=== PATIENT | female | born 1965 | race Caucasian/White ===

== ENCOUNTER 2017-07-24 15:48 | Emergency (ER) | payer BC ==
[~2017-07-24] VITALS: Ht 170.2 cm; Wt 59.1 kg
[2017-07-24 16:03] VITALS: TEMP 37; Ht 170.2 cm; Wt 59.1 kg
[2017-07-24 18:25] LABS: ISTAT CREATININE 0.9 mg/dl (0.6-1.3); ISTAT IONIZED CALCIUM 1.16 mmol/l (1.12-1.32); ISTAT POTASSIUM 3.9 mEq/L (3.3-5.0)
[2017-07-24] MEDS ORDERED: VENL75CA73 PO (18:54)
[2017-07-24] MEDS ORDERED: [UNRECOGNIZED DRUG - OTHER] PO (18:54)
[2017-07-24] MEDS ORDERED: LISI-729 PO (18:54)
[2017-07-24] MEDS ORDERED: POTA20TA16 PO (18:54)
[2017-07-24] MEDS ORDERED: MULT-513 PO (18:54)
[2017-07-24] MEDS ORDERED: MAGNESIUM PO (18:54)
[2017-07-24] MEDS ORDERED: THY/120 PO (18:54)
[2017-07-24] MEDS ORDERED: HYDR25TA4 PO (18:54)
[2017-07-24] MEDS ORDERED: PHEN1PAK PO (18:54)
[2017-07-24] MEDS ORDERED: ACET-1256 PO (18:55)
[2017-07-24 19:30] LABS: INFLUENZA B ANTIGEN Neg for Influ B (NEG)
[2017-07-24] MEDS ORDERED: NITR-5 PO (19:41)
--- NOTE | 2017-07-24 19:46 | EMERGENCY ROOM VISIT NOTE ---
History Report prepared by Claudia: Alda Osborn Under the Supervision of: Dr. Nicho Reynaga M.D. First contact with patient: 17:02 Chief Complaint: FLU LIKE SX Stated Complaint: SX OF KIDNEY INFECTION, PHYSICIAN REFERRED History of Present Illness The patient is a 52 year old female who presents to the Emergency Room with complaints of persistent flu symptoms starting 2 days ago. She reports aching joints. 2 nights ago she was walking to the living room when she became lightheaded and felt like she was going to pass out. She was able to lower herself down and did not hit her head or lose consciousness. She also started having left flank pain and strong smelling urine which she notes are symptoms of kidney infections for her. She denies any chest pain, SOB, abdominal pain or hematuria. She has a history of kidney infections. She denies any recent travel , recent surgery, hemoptysis, or hormone use. She denies any history of PE or DVT. Source of History: patient Onset: 2 days ago Position: other (global) Quality: other (flu symptoms) Timing: other (persistent) Associated Symptoms: + urinary symptoms, No LOC, No chest pain, No SOB, No abdominal pain Note: Pt reports aching joints, lightheadedness. Review of Systems See HPI for pertinent positives and negatives. A total of ten systems were reviewed and were otherwise negative. Past Medical & Surgical Medical Problems: (1) Aortic root aneurysm (2) Hypertension (3) Thyroid disease Family History No pertinent family history stated. Social History Smoking Status: Never Smoker Marital Status: Occupation Status: employed Current/Historical Medications Scheduled Hydrochlorothiazide (Hctz), 25 MG PO DAILY Lisinopril (Prinivil), 5 MG PO DAILY Multivitamins/Minerals (Mvi With Minerals), 1 TAB PO DAILY Nitrofurantoin Monohyd Macrocr (Macrobid), 100 MG PO BID Phenylephrine-Chlorpheniramine (Tylenol Cold Plus Flu Sev), 2 TABS PO PRN UD Potassium Ext Rel (Klor-Con), 20 MEQ PO BID Thyroid ([place] Thyroid), 120 MG PO DAILY Venlafaxine Hcl (Venlafaxine Extended Rel), 75 MG PO DAILY [Magnesium & B6], 1 TAB PO DAILY Scheduled PRN Acetaminophen (Tylenol), 1,000 MG PO Q6 PRN for Pain or Fever Allergies Coded Allergies: No Known Allergies (Unverified , 07/24/17) Physical Exam Vital Signs Date Time Temp Pulse Resp B/P (MAP) Pulse Ox O2 Delivery O2 Flow Rate FiO2 07/24/17 20:55 98 122/79 99 07/24/17 19:08 101 17 128/85 Room Air 07/24/17 16:03 37.0 99 18 112/76 96 Room Air Physical Exam Physical Exam GENERAL: She is oriented to person, place, and time. She appears well- developed and well-nourished. She does not appear distressed. ____ HENT: Exam performed. Head: Normocephalic and atraumatic. Right Ear: External ear normal. No mastoid tenderness. Left Ear: External ear normal. No mastoid tenderness. Mouth/Throat: The oropharynx is clear and moist. No trismus in the jaw. No dental abscesses or uvula swelling. No oropharyngeal exudate or tonsillar abscesses. ____ EYES: Conjunctivae and EOM are normal. Pupils are equal, round, and reactive to light. Right eye exhibits no discharge. Left eye exhibits no discharge. No scleral icterus. ____ NECK: Normal range of motion. Neck supple. No JVD present. No spinous process tenderness present. No carotid bruit present. No rigidity. No tracheal deviation and normal range of motion present. No Brudzinski's sign and no Kernig 's sign noted. ____ CV: Normal rate, regular rhythm, normal heart sounds and intact distal pulses. There is no peripheral edema. Palpable radial pulses bue. ____ PULM/CHEST: Effort normal and breath sounds normal. No respiratory distress. No stridor. She has no wheezes. She has no rales. Chest Wall: She exhibits no tenderness. ____ ABD: The abdomen is soft. Bowel sounds are normal. She has no distension. No mass is present. There is no tenderness. There is no rebound, no guarding, no Jenkins's sign and no tenderness at McBurney's point. Rovsig negative MUSC/SKEL: Normal range of motion. There is no peripheral edema, tenderness or deformity. LYMPH: No cervical adenopathy. ____ NEURO: She is alert and oriented to person, place, and time. She has normal strength. No cranial nerve deficit or sensory deficit. Coordination and gait normal. GCS eye subscore is 4. GCS verbal subscore is 5. GCS motor subscore is 6. cerbellar tests wnl. ____ SKIN: Skin is warm and dry. She is not diaphoretic. ____ PSYCH: She has a normal mood and affect. Her behavior is normal. Judgment and thought content normal. ____ Medical Decision & Procedures Laboratory Results Test 07/24/17 18:11 07/24/17 18:15 07/24/17 18:30 Bedside Hemoglobin 15.6 g/dl (12.0-16.0) Bedside Hematocrit 46 % (37-47) Bedside Sodium 138 mEq/L (135-144) Bedside Potassium 3.9 mEq/L (3.3-5.0) Bedside Chloride 99 mEq/L (101-112) Bedside Total CO2 31 mEq/l (24-31) Anion Gap 12.0 mmol/L (16-25) Bedside Blood Urea Nitrogen 17 mg/dl (7-18) Bedside Creatinine 0.9 mg/dl (0.6-1.3) Bedside Glucose (other) 101 mg/dl (70-99) Bedside Ionized Calcium (Ankit) 1.16 mmol/l (1.12-1.32) Urine Color YELLOW Urine Appearance TURBID (CLEAR) Urine pH 5.5 (4.5-7.5) Urine Specific [place] 1.023 (1.000-1.030) Urine Protein 2+ (NEG) Urine Glucose (UA) NEG (NEG) Urine Ketones 1+ (NEG) Urine Occult Blood 1+ (NEG) Urine Nitrite POS (NEG) Urine Bilirubin NEG (NEG) Urine Urobilinogen NEG (NEG) Urine Leukocyte Esterase LARGE (NEG) Urine WBC (Auto) >30 /hpf (0-5) Urine RBC (Auto) 5-10 /hpf (0-4) Urine Hyaline Casts (Auto) 1-5 /lpf (0-5) Urine Epithelial Cells (Auto) >30 /lpf (0-5) Urine Bacteria (Auto) 3+ (NEG) Influenza Type A Antigen Neg for Influ A (NEG) Influenza Type B Antigen Neg for Influ B (NEG) Laboratory results reviewed by me ECG Indication: other (near syncope) Rate (beats per minute): 94 Rhythm: sinus rhythm Findings: no acute ischemic change, no ectopy, other (IA, QRS, and QTc within normal limits, no ST elevation or ST depression) Change: Patient's electrocardiogram per my interpretation. ED Course 172: The patient was evaluated in room B7. A complete history and physical exam was performed. 1934: I reevaluated the patient. Vital signs stable. Repeat physical exam wnl. Abdominal exam wnl, no tenderness on palpation. Flu swab negative. EKG wnl. Patients urine sample was contaminated however given her symptoms she will be treated with antibiotics. Cultures sent. Follow up with PCP. DISCHARGE - Plan of care discussed with patient and questions answered. The patient was given both verbal and printed discharge instructions. The patient verbalized understanding and ability to comply. The patient is to seek outpatient follow up as noted in the discharge instructions. The patient verbalized understanding and ability to comply. The patient is discharged in stable condition. The patient was instructed to return for worsening symptoms. Medical Decision Vital signs stable. Repeat physical exam wnl. Abdominal exam wnl, no tenderness on palpation. Flu swab negative. EKG wnl. Patients urine sample was contaminated however given her symptoms she will be treated with antibiotics. Cultures sent. Follow up with PCP. DISCHARGE - Plan of care discussed with patient and questions answered. The patient was given both verbal and printed discharge instructions. The patient verbalized understanding and ability to comply. The patient is to seek outpatient follow up as noted in the discharge instructions. The patient verbalized understanding and ability to comply. The patient is discharged in stable condition. The patient was instructed to return for worsening symptoms. Medication Reconcilliation Current Medication List: was personally reviewed by me Blood Pressure Screening Patient's blood pressure: Normal blood pressure Blood pressure disposition: Did not require urgent referral Impression Primary Impression: UTI (urinary tract infection) Additional Impression: Near syncope Scribe Attestation The scribe's documentation has been prepared under my direction and personally reviewed by me in its entirety. I confirm that the note above accurately reflects all work, treatment, procedures, and medical decision making performed by me. The chart was completed utilizing [employer]pipe voice recognition software. Grammatical errors, random word insertions, pronoun errors, and incomplete sentences are an occasional consequence of this system due to software limitations, ambient noise, and hardware issues. Any formal questions or concerns about the content, text, or information contained within the body of this dictation should be directly addressed to the physician for clarification. Departure Information Dispostion Home / Self-Care Prescriptions Nitrofurantoin Monohyd Macrocr (Macrobid) 100 Mg Cap 100 MG PO BID for 7 Days, #14 CAP Prov: Nicho Reynaga M.D. 07/24/17 Referrals Rahul Mcgraw M.D. (PCP) Forms HOME CARE DOCUMENTATION FORM, IMPORTANT VISIT INFORMATION Patient Instructions ED Near Syncope Unkn, ED UTI Cystitis Female, [facility] Additional Instructions Return to the emergency department if he develops fever greater 100.4, blood and urine, inability to urinate, you lose consciousness, or symptoms worsen or do not resolve. Problem Qualifiers Primary Impression: UTI (urinary tract infection) Urinary tract infection type: site unspecified Hematuria presence: without hematuria Qualified Codes: N39.0 - Urinary tract infection, site not specified
[2017-07-24] MEDS ORDERED: MACROBID 100MG HOME PACK 1 EA VIAL PO ONE (20:45)
[2017-07-24 20:55] VITALS: BP 122/79; PULSE 98; O2SAT 99
--- NOTE | 2017-07-26 12:11 | Pharmacy Progress Note ---
ED Pharmacist Culture FollowUp Date of Service: Jul 26, 2017. Patient was sent home with a prescription for macrobid 100mg BID X 7 days, which should cover the E.Coli growing from the patient's urine culture.
== END 2017-07-24 20:45 | disposition home or self-care (01) ==
LOC: C.EDB 15:51
DX: N39.0 Urinary tract infection, site not specified (principal); I10 Essential (primary) hypertension; E07.9 Disorder of thyroid, unspecified; Z79.899 Other long term (current) drug therapy

== ENCOUNTER → 2017-09-25 | Outpatient (CLI) | payer BC ==
[~2017-09-25] MED LIST: ACET-1256 PO; HYDR25TA4 PO; LISI-729 PO; MAGNESIUM PO; MULT-513 PO; PHEN1PAK PO; POTA20TA16 PO; THY/120 PO; VENL75CA73 PO; [UNRECOGNIZED DRUG - OTHER] PO
== END | disposition home or self-care (01) ==
LOC: C.LABSPEC 17:14
PROVIDERS: ATTEND Urology
DX: N26.1 Atrophy of kidney (terminal) (principal); N30.00 Acute cystitis without hematuria

== ENCOUNTER → 2017-11-05 | Outpatient (CLI) | payer BC ==
[~2017-11-05] MED LIST changes: +FUROSEMIDE INJ 10 MG/ML 2 ML VIAL IV ONE; +POTA-639 PO; -POTA20TA16 PO
--- NOTE | 2017-11-05 13:15 | DIAGNOSTIC IMAGING REPORT ---
RENAL SCAN DIURETIC (MAG 3) CLINICAL HISTORY: 52 years-old Female presenting with N26.1 Atrophy of right [id number]. TECHNIQUE: A nuclear diuretic renal scan is performed following the IV administration of 8.5 mCi technetium 99m radiolabeled MAG3. Posterior blood flow images were acquired at one frame every two seconds for a total 30 frames. Posterior static cortical phase images were acquired every 5 minutes for a total of 45 minutes. IV Lasix was administered at 20 minutes. Renal curves were calculated. COMPARISON: None. FINDINGS: On the blood flow phase images, delayed and diminished perfusion of the right kidney are reviewed normal distribution of radiotracer in the vasculature with prompt perfusion of the left kidney. On the cortical phase images, normal accumulation of radiotracer in the left renal parenchyma and excretion into the left renal collecting systems and bladder. Minimal accumulation of radiotracer in the right renal parenchyma, which demonstrates delayed transit into the right renal collecting system. Subsequently, clearance phase imaging demonstrates time to peak on the right measuring 19.0 minutes and on the left was measuring 9.0 minutes. The time from max to half max pre-Lasix on the right measures 11.4 minutes and on the left measures 16.0 minutes. The time to half post Lasix on the right measures 10.8 minutes and on the left measures 6.7 minutes. No abnormal retention of radiotracer in the collecting systems after furosemide administration. Right: Approximate counts at 3 minutes: 100 Approximate counts at 20 minutes: 300 Approximate counts at peak: 300 Ratio of counts at 20 minutes/3 minutes: 3 Ratio of counts at 20 minutes/peak: 1 Left: Approximate counts at 3 minutes: 2100 Approximate counts at 20 minutes: 2300 Approximate counts at peak: 2800 Ratio of counts at 20 minutes/3 minutes: 1.10 Ratio of counts at 20 minutes/peak: 0.82 Split function measurements of 3.4% on the right and 96.6% on the left. Reference ranges: Normal time to peak: 3 to 5 minutes. Normal time from peak to half max pre-Lasix: 8-12 minutes. Ratio of counts at 20 minutes/3 minutes should be less than 0.8 and 20 minutes/peak less than 0.3. Washout of at least 50% of tracer within 10 minutes post Lasix normal; if greater than 50% retention between 10 to 20 minutes post Lasix, indeterminate for obstruction; if greater than 50% retention beyond 20 minutes, suspected obstruction. IMPRESSION: 1. Severely diminished renal function of the right kidney with preserved function of the left kidney. However, renal function of the left kidney is not entirely normal, suggesting chronic medical renal disease. No evidence of obstruction. 2. Relative renal function on the right 3.4% and on the left kidney 96.6%. Electronically signed by: Rupesh Magaña M.D. 11/05/2017 1:14 PM Dictated Date/Time: 11/05/2017 1:07 PM
== END | disposition home or self-care (01) ==
LOC: C.NUCL 10:21
PROVIDERS: ATTEND Urology
DX: N26.1 Atrophy of kidney (terminal) (principal)

== ENCOUNTER 2022-06-21 10:47 | Inpatient (IN) ==
--- NOTE | 2022-06-15 11:04 | Anesthesiology Consultation ---
Date of Service June 15, 2022 Assessment & Plan (1) Encounter for pre-operative examination: Chart Review Chart Review: Pending: Refer to Additional Notes / Consult section (pending PCP clearance 06/19/22 (with response to K, elevated TSH, positive UA), most recent cardio note, most recent chest CTA, and any cardiac testing if available ) and Patient NOT seen in Pre Admission Testing -Awaiting PCP clearance scheduled 06/19/22 (please send optimization note re: hypokalemia, elevated TSH and positive urine culture along with all preop testing) - Please fax for last cardio note ([facility]), most recent chest CTA, and any recent ECHO/stress/cardiac testing in past six years -COVID screening: Per PAT nursing assessment on 06/15/22. No known COVID-19 positive contacts or current COVID-19 related symptoms. Travel screen negative. Patient vaccinated for Covid. At surgeon discretion if preop Covid testing being done. History Surgery Operation Date: 06/21/22 12:55 Proposed Procedures p L5-S1 Decompression and Fusion, Spinal Cord Monitoring - Jesse Berkowitz, Height/Weight Height: 5 ft 7 in Weight: 61.235 kg Allergies Allergy/AdvReac Type Severity Reaction Status Date / Time bee venom protein (honey bee) Allergy Severe HIVES - Verified 06/15/22 09:05 SEVERE Iodinated Contrast Media Allergy Unknown NO DYE Verified 06/15/22 09:05 WITHOUT CHECKING - ATROPHIED RIGHT KIDNEY - SEE NOTES Unclassified Drugs Allergy Unknown SEASONAL Uncoded 06/15/22 09:05 ALLERGIES - SINUS ISSUES, ITCHY EYES, COUGH Medications Home Medications Medication Instructions Recorded Confirmed Last Taken diphenhydramine 25 1 tab PO DAILY PRN Allergy Symptoms 03/10/19 06/15/22 Unknown mg-acetaminophen 500 mg tablet hydrochlorothiazide 25 mg tablet 25 mg PO QAM #30 tabs 03/10/19 06/15/22 Unknown multivitamin (Multiple Vitamins 1 tab PO QAM 03/10/19 06/15/22 Unknown tablet) venlafaxine 75 mg capsule,extended 75 mg PO QPM 03/10/19 06/15/22 Unknown release 24 hr calcium carbonate 600 mg-vitamin 1 tab PO QPM 09/16/19 06/15/22 Unknown D3 20 mcg (800 unit) tablet (Caltrate with Vitamin D3) potassium chloride 20 mEq 20 meq PO QAM 01/06/21 06/15/22 Unknown tablet,extended release alendronate 70 mg tablet 70 mg PO .weekly 01/10/22 06/15/22 Unknown amlodipine 5 mg tablet 10 mg PO QPM 01/10/22 06/15/22 Unknown cholecalciferol (vitamin D3) 125 125 mcg PO QAM 01/10/22 06/15/22 Unknown mcg (5,000 unit) capsule magnesium oxide 500 mg capsule 500 mg PO QPM 01/10/22 06/15/22 Unknown levothyroxine 112 mcg tablet 112 mcg PO QAM 06/15/22 06/15/22 Unknown Past Medical History Medical History (Updated 06/15/22 @ 11:03 by Nena Bowie PA-C) Aortic root aneurysm Last checked approx [address] Alexis with [facility] monitors. Atrophy of right kidney Questionable congenital per records - follows with nephro - stable at 12/2021 visit Cardiac murmur No murmur noted at 05/31/22 ER visit Chronic kidney disease Follows with Dr. Sridhar Yost History of atrial fibrillation Remote hx r/t abnormal thyroid function. No issues since. Resolved with treatment of thyroid issue. History of kidney stones History of radioactive iodine thyroid ablation Secondary to Graves disease Hypertension Hypothyroidism, postablative Migraines Osteoporosis Sciatica Slow to wake up after anesthesia TMJ click Past Family History Family History Other No family history of adverse response to anesthesia Denies family history of Kidney disease Past Surgical History Surgical History H/O breast surgery removal of benign cyst History of bladder surgery History of colonoscopy History of lithotripsy History of partial hysterectomy History of wisdom tooth extraction S/P trigger finger release Social History Smoking Status: Never smoker Do You Dip or Chew Tobacco: No Hx Alcohol Use: No Hx Substance Use: No substance use type: does not use Lab Results Anesthesia Preop Results Results Anesthesia Widget: WBC 7.54 K/ul (4.8-10.8) 05/31/22 Hgb 13.6 g/dl (12.0-16.0) 05/31/22 Hct 39.5 % (34.1-44.9) 05/31/22 Plt 347 K/uL (130-400) 05/31/22 Na 140 mmol/L (136-145) 05/31/22 K 3.0 mmol/L (3.5-5.1) L 05/31/22 Cl 99 mmol/L (98-107) 05/31/22 CO2 35 mmol/L (21-32) H 05/31/22 BUN 19 mg/dl (6-23) 05/31/22 Creat 0.96 mg/dl (0.6-1.2) 05/31/22 Glucose Level 90 mg/dl (70-99(Fasting)) 05/31/22 PT 10.5 Seconds (9.0-12.0) 06/05/22 PTT 21.9 Seconds (21.0-31.0) 06/05/22 INR 1.0 (0.9-1.1) 06/05/22 TSH 14.752 uIu/ml (0.300-4.500) H 06/05/22 Free T4 0.66 ng/dl (0.61-1.60) 06/05/22 Urine Color Yellow 06/05/22 Urine Appearance Clear (Clear) 06/05/22 Urine pH 7.0 (4.5-7.5) 06/05/22 Urine Specific [place] 1.019 (1.000-1.030) 06/05/22 Urine Protein Negative (Negative) 06/05/22 Urine Glucose (UA) Negative (Negative) 06/05/22 Urine Ketones Negative (Negative) 06/05/22 Urine Blood Negative (Negative) 06/05/22 Urine Nitrite Positive (Negative) A 06/05/22 Urine Bilirubin Negative (Negative) 06/05/22 Urine Urobilinogen Negative (Negative) 06/05/22 Urine Leukocyte Esterase 1+ (Negative) H 06/05/22 Urine WBC (Auto) 10-30 /hpf (0-5) H 06/05/22 Urine RBC (Auto) 0-4 /hpf (0-4) 06/05/22 Urine Hyaline Casts (Auto) 1-5 /lpf (0-5) 06/05/22 Urine Epithelial Cells (Auto) 0-5 /lpf (0-5) 06/05/22 Urine Bacteria (Auto) 2+ (Negative) H 06/05/22 Testing Laboratory Results 06/05/22= URINE CULTURE: Enterococcus faecalis, >100,000 CFU/ml *Surgeon's office and PCP informed of abnormal UA Wrote note to PCP to address hypokalemia and elevated TSH at upcoming preop appt Electrocardiogram Date: 05/27/22 Poor data quality NSR at 81bpm Left axis deviation Nonspecific T wave abnormality When compared to EKG from Jul 24, 2017- nonspecific T wave abnormality now present in lateral leads per cardio. Chest X-Ray Date: 06/05/22 Findings: + NAD
[~2022-06-21 10:47] MED LIST changes: -ACET-1256 PO; +ACETAMINOPHEN 500 MG TAB PO SCH; +CeleBREX 200 MG CAP PO SCH; -FUROSEMIDE INJ 10 MG/ML 2 ML VIAL IV ONE; +GABAPENTIN 600 MG DOSE PO SCH; -HYDR25TA4 PO; -LISI-729 PO; +LR 15ML/HR IV SCH; -MAGNESIUM PO; -MULT-513 PO; -PHEN1PAK PO; -POTA-639 PO; -THY/120 PO; -VENL75CA73 PO; -[UNRECOGNIZED DRUG - OTHER] PO; +ceFAZolin 2000MG 2,000 MG/15 ML SYR IV SCH
[2022-06-21] MEDS ORDERED: ATROPINE SULFATE 0.1 MG/ML 10ML SYR IV PRN (11:37)
[2022-06-21] MEDS ORDERED: fentaNYL citrate 100 MCG/2 ML VIAL IV PRN (11:37)
[2022-06-21] MEDS ORDERED: ePHEDrine sulfate 50 MG/ML AMP IV PRN (11:37)
[2022-06-21] MEDS ORDERED: ONDANSETRON INJ 2 MG/ML 2 ML VIAL IV PRN ×2 (11:37→17:32)
[2022-06-21 11:52] LABS: BUN Creatinine Ratio 19.6 (10-20); Calcium 10.5 mg/dl (8.5-10.1); Creatinine Clr Calc Pharmacy 58.3 ml/min; Est GFR (African American) 74.6 ml/min; Est GFR (Non-African American) 64.4 ml/min; Potassium 3.1 mmol/L (3.5-5.1)
--- NOTE | 2022-06-21 13:39 | History & Physical Bridge Note ---
Date of Service June 21, 2022 History & Physical Bridge Note I have examined the patient, reviewed the History & Physical and in the interval since the performance of the History & Physical I have noted the following changes of clinical significance: no changes noted
--- NOTE | 2022-06-21 13:40 | History & Physical Report ---
Date of Service June 21, 2022 Assessment & Plan (1) Neurogenic claudication due to lumbar spinal stenosis: Plan: L5-S1 decompression and fusion History of Present Illness Chief Complaint: Back and leg pain Primary Care Provider: Rahul Mcgraw This is a 57-year-old female who presents for persistent back and leg pain. Failing since course of nonoperative care is here for surgical invention. Allergies Allergy/AdvReac Type Severity Reaction Status Date / Time bee venom protein (honey bee) Allergy Severe HIVES - Verified 06/21/22 11:10 SEVERE Iodinated Contrast Media Allergy Severe NO DYE Verified 06/21/22 11:10 WITHOUT CHECKING - ATROPHIED RIGHT KIDNEY - SEE NOTES Unclassified Drugs Allergy Intermediate SEASONAL Uncoded 06/21/22 11:10 ALLERGIES - SINUS ISSUES, ITCHY EYES, COUGH Home Medications Medication Instructions Recorded Confirmed Type diphenhydramine 25 1 tab PO DAILY PRN Allergy Symptoms 03/10/19 06/21/22 History mg-acetaminophen 500 mg tablet hydrochlorothiazide 25 mg tablet 25 mg PO QAM #30 tabs 03/10/19 06/21/22 History multivitamin (Multiple Vitamins 1 tab PO QAM 03/10/19 06/21/22 History tablet) venlafaxine 75 mg capsule,extended 75 mg PO QPM 03/10/19 06/21/22 History release 24 hr calcium carbonate 600 mg-vitamin 1 tab PO QPM 09/16/19 06/21/22 History D3 20 mcg (800 unit) tablet (Caltrate with Vitamin D3) potassium chloride 20 mEq 20 meq PO QAM 01/06/21 06/21/22 History tablet,extended release alendronate 70 mg tablet (Fosamax) 70 mg PO .weekly 01/10/22 06/21/22 History amlodipine 5 mg tablet 10 mg PO QPM 01/10/22 06/21/22 History cholecalciferol (vitamin D3) 125 125 mcg PO QAM 01/10/22 06/21/22 History mcg (5,000 unit) capsule magnesium oxide 500 mg capsule 500 mg PO QPM 01/10/22 06/21/22 History levothyroxine 112 mcg tablet 112 mcg PO QAM 06/15/22 06/21/22 History Past Med/Surg History Medical History (Updated 06/21/22 @ 13:40 by Jesse Berkowitz DO) Aortic root aneurysm Last checked approx [address] Alexis with [facility] monitors. Atrophy of right kidney Questionable congenital per records - follows with nephro - stable at 12/2021 visit Cardiac murmur No murmur noted at 05/31/22 ER visit Chronic kidney disease Follows with Dr. Sridhar Yost History of atrial fibrillation Remote hx r/t abnormal thyroid function. No issues since. Resolved with treatment of thyroid issue. History of kidney stones History of radioactive iodine thyroid ablation Secondary to Graves disease Hypertension Hypothyroidism, postablative Migraines Osteoporosis Sciatica Slow to wake up after anesthesia TMJ click Surgical History H/O breast surgery removal of benign cyst History of bladder surgery History of colonoscopy History of lithotripsy History of partial hysterectomy History of wisdom tooth extraction S/P trigger finger release Family History Other No family history of adverse response to anesthesia Denies family history of Kidney disease Social History Smoking Status: Never smoker Second Hand Exposure: No; Do You Dip or Chew Tobacco: No; Hx Alcohol Use: Yes Hx Substance Use: No Preferred Language: Turkish Communication Ability: Effective Air Export Agent Required: No Beliefs That Will Affect Care: None marital status: Current Living Situation: Alone current occupational status: employed Feels Safe at Home: Yes Safety Concerns: Feels Safe At This Time Assistive Devices: Contacts and Glasses Physical Exam Physical Exam: Patient is alert and oriented Heart regular rhythm Lungs clear Results & Data Results & Data ([facility]) Vital Signs (Past 12 Hours) Vital Signs Temp Pulse Resp BP Pulse Ox O2 Del Method 06/21/22 11:17 36.8 C 97 H 20 160/100 H 97 Room Air
[2022-06-21] MEDS ORDERED: LIDOCAINE 2% MPF LOCAL 5 ML VIAL INFIL ONE (13:57)
[2022-06-21] MEDS ORDERED: ROCURONIUM BROMIDE 10 MG/ML 5 ML VIAL IV ONE ×5 (13:57)
[2022-06-21] MEDS ORDERED: DEXAMETHASONE SOD INJ 4 MG/ML VIAL ONE (13:57)
[2022-06-21] MEDS ORDERED: BUPIVACAINE/EPINEPHRINE 0.25% 1:200,000 30 ML VIAL ONE (13:58)
[2022-06-21] MEDS ORDERED: ONDANSETRON INJ 2 MG/ML 2 ML VIAL ONE (13:58)
[2022-06-21] MEDS ORDERED: ceFAZolin 330 MG/ML 1 GM VIAL ONE (13:58)
[2022-06-21] MEDS ORDERED: PROPOFOL IV EMULSION 10 MG/ML 20 ML VIAL IV ONE (13:59)
[2022-06-21] MEDS ORDERED: fentaNYL citrate 100 MCG/2 ML VIAL ONE (14:03)
[2022-06-21] MEDS ORDERED: MIDAZOLAM HCL 1 MG/ML 2ML VIAL ONE (14:03)
[2022-06-21] MEDS ORDERED: ePHEDrine sulfate 50 MG/ML AMP ONE (14:57)
[2022-06-21] MEDS ORDERED: FLOSEAL HEMOSTATIC MATRIX 10ML TOP ONE (15:36)
[2022-06-21] MEDS ORDERED: NEOSTIGMINE METHYLSULFATE 1 MG/ML 10ML VIAL ONE (15:44)
[2022-06-21] MEDS ORDERED: GLYCOPYRROLATE 0.2 MG/ML VIAL ONE (15:44)
--- NOTE | 2022-06-21 15:47 | Fluoroscopy Report ---
FL lumbar spine 2-3V HISTORY: 57 years-old Female L5-S1 DECOMPRESSION AND FUSION chronic low back pain COMPARISON: MR lumbar spine 05/31/2022 TECHNIQUE: 2 spot fluoroscopic images of the lumbar spine were obtained utilizing 21.7 seconds fluoro scopy time FINDINGS: Posterior interbody bill and screw fusion with discectomy at L5-S1. Hardware appears intact. No unexpe cted retained foreign body identified. IMPRESSION: Fluoroscopic assistance as above. ACT 112: Negative or not required by law. The above report was generated using voice recognition software. It may contain grammatical, syntax o r spelling errors. Electronically signed by: Mike James M.D. 06/21/2022 3:46 PM
--- NOTE | 2022-06-21 15:59 | Operative Report ---
Post Operative Report Pre & Post Diagnosis Operation Date: 06/21/22 12:55 Pre-Op Diagnosis: L5-S1 spondylolisthesis with herniated nucleus pulposus Post-Op Diagnosis: Same I identified the patient and participated in the time-out.: Yes Procedure Operation Date: 06/21/22 12:55 Actual Procedures #1 lumbar decompression bilateral medial facetectomies and foraminotomies L5-S1. #2 posterior spinal fusion L5-S1. #3 placement posterior instrumentation L5- S1. #4 interbody fusion L5-S1. #5 placement of Spira 13 x 26 mm cage L5-S1. #6 placement locally harvested morselized autograft in the posterior lateral gutters. #7 placement of I factor V toss in the interbody space and posterior lateral gutters. Surgeon Jesse Berkowitz, Slat Basket Maker Helper None Estimated Blood Loss 50 Findings Consistent with Post-Op Diagnosis Specimens None Indications This is a 57-year-old female who presents with above-mentioned diagnosis after failing course of nonoperative care she is here for surgical invention. Description of Procedure Patient was met with identified informed consent obtained. Patient was then taken to the operative suite underwent a patient placed in a prone position on the [facility] top Domingo frame. All bony prominences well-padded eyes inspected to ensure no external pressure placed upon them. This point the lumbar spine was prepped and draped in the normal sterile fashion. Sharp dissection with the assistance of Bovie cautery was performed down to and exposing the lamina and transverse process of L5 and the sacral ala bilaterally. From caudal to cephalad fashion complete laminectomy of L5 was performed including bilateral medial facetectomies and foraminotomies addressing severe stenosis as well as a massive disc herniation on the left with significant encroachment of the traversing S1 nerve root. After complete decompression pedicle screws were placed in L5 and S1 levels bilaterally with assistance of fluoroscopy and appropriately sized bill placed. By way of a transforaminal approach and left pleat discectomy was performed endplates curetted to subcortically bone and a 13 x 26 mm spiral cage filled with I factor tapped in position. The rods then locked in final position bilaterally. The transverse processes of L5 and sacral ala burred to subcortically bone. I factor bone with V toss and locally harvested morselized autograft placed in the posterior gutters. 15 round ELIESER drain inserted. The incision was then closed with 1 Vicryl the fascia 2-0 Vicryl subcutaneously and 4 Monocryl for final skin closure. Steri-Strips dressings placed. Patient waken taken to PACU stable condition. Please note spinal cord monitoring was utilized at the procedure no changes noted. I attest to the content of the Intraoperative Record and any orders documented therein. Any exceptions are noted below.
--- NOTE | 2022-06-21 16:51 | Anesthesiology Progress Note ---
Date of Service June 21, 2022 Anesthesia Post Procedure Vital Signs Vital Signs: Temp Pulse Pulse Resp BP Pulse Ox O2 Del Method 06/21/22 16:40 56 L 12 106/68 99 Nasal Cannula 06/21/22 16:30 67 14 110/64 96 Nasal Cannula 06/21/22 16:20 78 16 113/71 96 Nasal Cannula 06/21/22 16:14 36.0 C L 83 16 133/81 91 Nasal Cannula 06/21/22 11:17 36.8 C 97 H 20 160/100 H 97 Room Air O2 Flow Rate 06/21/22 16:40 2 06/21/22 16:30 2 06/21/22 16:20 2 06/21/22 16:14 2 06/21/22 11:17 Pain Intensity Left Hip: Pain Intensity: 3 Left Lateral Ankle: Pain Intensity: 0 Transfer of Care Handoff Completed per policy Notes Mental Status: alert / awake / arousable and participated in evaluation Patient Amnestic to Procedure: Yes Nausea / Vomiting: adequately controlled Pain: adequately controlled Airway Patency, RR, SpO2: stable & adequate BP & HR: stable & adequate Hydration State: stable & adequate Anesthetic Complications: no major complications apparent and Pt Satisfied with anesthetic care
[2022-06-21] MEDS ORDERED: ACETAMINOPHEN 1,000 MG/100 ML VIAL IV PRN (17:32)
[2022-06-21] MEDS ORDERED: ACETAMINOPHEN 500 MG TAB PO PRN (17:32)
[2022-06-21] MEDS ORDERED: HYDROmorphone INJ 0.5 MG/0.5 ML SYR IV PRN (17:32)
[2022-06-21] MEDS ORDERED: ALUMINUM/MAGNESIUM SUSP 30 ML UDC PO PRN (17:32)
[2022-06-21] MEDS ORDERED: PROMETHAZINE HCL 12.5 MG in SODIUM CHLORIDE 0.9% 50 ML IV PRN (17:32)
[2022-06-21] MEDS ORDERED: SOD PHOSPHATE/SOD BIPHOSPHATE ENEMA 132 ML BTL PR PRN (17:32)
[2022-06-21] MEDS ORDERED: HYDROmorphone INJ 1 MG/ML SYRINGE IV PRN (17:32)
[2022-06-21] MEDS ORDERED: METOCLOPRAMIDE HCL INJ 5 MG/ML 2 ML VIAL IV PRN (17:32)
[2022-06-21] MEDS ORDERED: MAGNESIUM HYDROXIDE SUSP 30 ML UDC PO PRN (17:32)
[2022-06-21] MEDS ORDERED: LORazepam 0.5 MG TAB PO PRN (17:32)
[2022-06-21] MEDS ORDERED: LORazepam 2 MG/1 ML VIAL IV PRN (17:32)
[2022-06-21] MEDS ORDERED: oxyCODONE HCL IR 5 MG TAB (IMMEDIATE RELEASE) PO PRN (17:32)
[2022-06-21] MEDS ORDERED: bisacodyL 10 MG SUPP PR PRN (17:32)
[2022-06-21] MEDS ORDERED: hydrOXYzine HCl 25 MG TAB PO PRN (17:32)
[2022-06-21] MEDS ORDERED: ONDANSETRON 4 MG OD TAB PO PRN (17:32)
[2022-06-21] MEDS ORDERED: FAMOTIDINE 20 MG TAB PO PRN (17:32)
[2022-06-21] MEDS ORDERED: diphenhydrAMINE Capsule 25 MG CAP PO PRN (17:32)
[2022-06-21] MEDS ORDERED: DIPHENHYDRAMINE ACETAMINOPHEN PO PRN (17:32)
[2022-06-21] MEDS ORDERED: DO NOT ADMINISTER FLU VACCINE PRN (17:32)
[2022-06-21] MEDS ORDERED: NALOXONE HCL 0.4 MG/1 ML VIAL/CARP IV PRN (17:32)
[2022-06-21] MEDS ORDERED: DO NOT ADMINISTER PNEUMOCOCCAL VACCINE PRN (17:32)
[2022-06-21] MEDS: LACTATED RINGER'S 1,000 ML IV SCH ×2 (17:56→23:24)
--- NOTE | 2022-06-21 18:54 | Consultation ---
Date of Consultation June 21, 2022 Assessment & Plan (1) Neurogenic claudication due to lumbar spinal stenosis: (2) Hypertension: (3) Hypothyroidism, postablative: (4) CKD (chronic kidney disease): Plan Ms. Pérez is a 57-year-old female who presents to the [facility] for an elective L5-S1 decompression and fusion elective surgery under the care of Dr. Berkowitz after failed nonoperative conservative management as an outpatient. 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 Neurogenic claudication due to lumbar spinal stenosis: POD#0 s/p L5-S1 decompression and fusion surgery status post spondylolisthesis with herniated nucleus and pulposis with Dr. Berkowitz. Per ortho for pain control, wound care, anticoagulation and activities. Monitor H&H (pre op Hgb 13.6) EBL 50mL ELIESER drain x1; serosanguineous drainage continue incentive spirometry PT/OT when appropriate Hypertension: Takes amlodipine; continue Hypothyroidism, post ablative: Secondary to Graves' disease Takes levothyroxine; continue Hypokalemia: K+ 3.1 Takes KCl 20 mill equivalent daily; continue Will replete with 40 mill equivalents p.o. once; trend in a.m. CKD: Nephrolithiasis: Atrophy of right kidney; likely congenital Per review of outpatient records Postmenopausal hot flashes: Takes Effexor for hot flashes; continue Disposition: PCP: Dr. Mcgraw CODE STATUS: Full code VTE prophylaxis: As per admitting physician I personally was able to review all current laboratory work and diagnostic images obtained in the ED. Additionally, I was able to review the patients past medication reconciliation and history with direct visualization in the patients chart. This patient was seen in collaboration with Dr. Alanis. Please see her addendum for further details. [facility] for any additional questions or assistance via [place] text. Thank you kindly for this consultation. Supervising Physician Co-Signing Physician Notes I have seen and examined the patient and have discussed the case with the provider above. I agree with the assessment and plan as stated. She is doing well with pain well managed post-operatively. Denies nausea. Reports feeling a full bladder and would like to urinate. Notably no urinary catheter is present. RN will help her ambulate to restroom. Bladder scan scheduled overnight to ensure she is not retaining. ELIESER drain intact and bloody output. She is hemodynamically stable and physican exam is unremarkable. I was unable to visualize her back incision given limited mobility and surgical dressing. Medications reviewed. Cont plan as above . DO Zeke History of Present Illness Requesting Physician: Dr. Berkowitz Reason for Consultation: Postoperative medical management Attending Physician: Jesse Berkowitz DO History of Present Illness Ms. Pérez is a 57-year-old female who presents to the [facility] for an elective L5-S1 decompression and fusion elective surgery under the care of Dr. Berkowitz after failed nonoperative conservative management as an outpatient. 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 Upon evaluation she was sitting upright in her hospital bed in no apparent distress. She is awake alert oriented x4 and able to have meaningful conversation. She denies any numbness or tingling in her lower extremities, headache, dizziness, visual changes, hearing changes, nausea, vomiting, diarrhea. She has been able to tolerate clear liquids to this point. Patient has ELIESER drain x1 and dressing on lower back is clean dry and intact. [facility] hospitalist service was consulted for postoperative medical management. Please see A/P for further details. Thank you kindly for the cons ultation. Allergies Allergy/AdvReac Type Severity Reaction Status Date / Time bee venom protein (honey bee) Allergy Severe HIVES - Verified 06/21/22 11:10 SEVERE Iodinated Contrast Media Allergy Severe NO DYE Verified 06/21/22 11:10 WITHOUT CHECKING - ATROPHIED RIGHT KIDNEY - SEE NOTES Unclassified Drugs Allergy Intermediate SEASONAL Uncoded 06/21/22 11:10 ALLERGIES - SINUS ISSUES, ITCHY EYES, COUGH Home Medications Medication Instructions Recorded Confirmed Type diphenhydramine 25 1 tab PO DAILY PRN Allergy Symptoms 03/10/19 06/21/22 History mg-acetaminophen 500 mg tablet hydrochlorothiazide 25 mg tablet 25 mg PO QAM #30 tabs 03/10/19 06/21/22 History multivitamin (Multiple Vitamins 1 tab PO QAM 03/10/19 06/21/22 History tablet) venlafaxine 75 mg capsule,extended 75 mg PO QPM 03/10/19 06/21/22 History release 24 hr calcium carbonate 600 mg-vitamin 1 tab PO QPM 09/16/19 06/21/22 History D3 20 mcg (800 unit) tablet (Caltrate with Vitamin D3) potassium chloride 20 mEq 20 meq PO QAM 01/06/21 06/21/22 History tablet,extended release alendronate 70 mg tablet (Fosamax) 70 mg PO .weekly 01/10/22 06/21/22 History amlodipine 5 mg tablet 10 mg PO QPM 01/10/22 06/21/22 History cholecalciferol (vitamin D3) 125 125 mcg PO QAM 01/10/22 06/21/22 History mcg (5,000 unit) capsule magnesium oxide 500 mg capsule 500 mg PO QPM 01/10/22 06/21/22 History levothyroxine 112 mcg tablet 112 mcg PO QAM 06/15/22 06/21/22 History Patient History Medical History Aortic root aneurysm Last checked approx [address] Alexis with [facility]. Atrophy of right kidney Questionable congenital per records - follows with nephro - stable at 12/2021 visit Cardiac murmur No murmur noted at 05/31/22 ER visit Chronic kidney disease Follows with Dr. Sridhar Yost History of atrial fibrillation Remote hx r/t abnormal thyroid function. No issues since. Resolved with treatment of thyroid issue. History of kidney stones History of radioactive iodine thyroid ablation Secondary to Graves disease Hypertension Hypothyroidism, postablative Migraines Osteoporosis Sciatica Slow to wake up after anesthesia TMJ click Surgical History H/O breast surgery removal of benign cyst History of bladder surgery History of colonoscopy History of lithotripsy History of partial hysterectomy History of wisdom tooth extraction S/P trigger finger release Family History Other No family history of adverse response to anesthesia Denies family history of Kidney disease Social History Smoking Status: Never smoker Second Hand Exposure: No; Do You Dip or Chew Tobacco: No; Hx Alcohol Use: No Hx Substance Use: No Preferred Language: Portuguese Communication Ability: Effective Fur Nailer Required: No Beliefs That Will Affect Care: None marital status: Current Living Situation: Alone current occupational status: employed Other Information That Helps Us Care for You: No Feels Safe at Home: Yes Safety Concerns: Feels Safe At This Time Assistive Devices: Glasses Review of Systems Review of Systems: Neuro: (-) Falls, trauma, slurred speech HEENT: (-) [place], dizziness, dysphagia, visual or auditory changes CV: (-) CP, palpitations, swelling Resp: (-) SOB GI: (-) appetite changes, N/V/D, bowel changes : (-) urinary changes Skin: (-) rashes Psych: (-) anxiety, depression Physical Exam Physical Exam: Neuro: AAOx4, PERRLA, no aphagia, memory changes, CNII-XII grossly intact HEENT: head normocephalic, moist mucus membranes CV: S1/S2, (-) M/G/R, (-) edema, cap refill < 3 seconds ELIESER drain x1 Resp: Lungs CTA in all [place]. On RA GI: Abdomen S/NT/ND, Ax4 bowel sounds, (-) CVA tenderness Musculoskeletal: 5/5 B/L UE strength, 5/5 B/L LE strength. No gait disturbance Skin: (-) rashes , (-) erythema. Lumbar dressing C/D/I Psych: euthymic mood Results & Data ([facility]) Vital Signs (Past 12 Hours) Vital Signs Temp Pulse Pulse Resp BP Pulse Ox O2 Del Method 06/21/22 18:36 36.5 C 82 16 119/74 92 Room Air 06/21/22 17:56 36.4 C L 77 16 115/72 96 Room Air 06/21/22 17:30 36.5 C 70 16 114/71 97 Room Air 06/21/22 16:40 56 L 12 106/68 99 Nasal Cannula 06/21/22 16:30 67 14 110/64 96 Nasal Cannula 06/21/22 17:15 78 12 110/64 97 Nasal Cannula 06/21/22 17:00 73 12 112/67 97 Nasal Cannula 06/21/22 16:50 36.4 C L 61 12 102/67 99 Nasal Cannula 06/21/22 16:20 78 16 113/71 96 Nasal Cannula 06/21/22 16:14 36.0 C L 83 16 133/81 91 Nasal Cannula 06/21/22 11:17 36.8 C 97 H 20 160/100 H 97 Room Air O2 Flow Rate 06/21/22 18:36 06/21/22 17:56 06/21/22 17:30 06/21/22 16:40 2 06/21/22 16:30 2 06/21/22 17:15 2 06/21/22 17:00 2 06/21/22 16:50 2 06/21/22 16:20 2 06/21/22 16:14 2 06/21/22 11:17 Laboratory Results BMP 06/21/22 11:07 Sodium 140 Potassium 3.1 L Chloride 101 Carbon Dioxide 30 BUN 19 Creatinine 0.97 Glucose 114 H Calcium 10.5 H Diagnostic Findings Lumbar Spine X-Ray 06/21/22 12:55 FL lumbar spine 2-3V HISTORY: 57 years-old Female L5-S1 DECOMPRESSION AND FUSION chronic low back pain COMPARISON: MR lumbar spine 05/31/2022 TECHNIQUE: 2 spot fluoroscopic images of the lumbar spine were obtained utilizing 21.7 seconds fluoroscopy time FINDINGS: Posterior interbody bill and screw fusion with discectomy at L5-S1. Hardware appears intact. No unexpected retained foreign body identified. IMPRESSION: Fluoroscopic assistance as above. ACT 112: Negative or not required by law. The above report was generated using voice recognition software. It may contain grammatical, syntax or spelling errors. Electronically signed by: Mike James M.D. 06/21/2022 3:46 PM
[2022-06-21] MEDS ORDERED: POTASSIUM CHLORIDE CRTAB 20 MEQ TABCR PO STA (19:46)
[2022-06-21] MEDS: amLODIPine BESYLATE 5 MG TAB PO SCH (20:01)
[2022-06-21] MEDS: DOCUSATE SODIUM/SENNA 50/8.6MG TAB PO SCH (20:02)
[2022-06-21] MEDS: MAGNESIUM OXIDE 400 MG TAB PO SCH (20:02)
[2022-06-21] MEDS: VENLAFAXINE HCL XR 75 MG CAPXR PO SCH (20:02)
[2022-06-21] MEDS: CALCIUM 600MG + VIT D 400 IU TAB PO SCH (20:03)
[2022-06-21] MEDS: ceFAZolin 1000MG 1,000 MG/7.5 ML SYR IV SCH (21:30)
[2022-06-22] MEDS: POLYETHYLENE (MIRALAX) 17 GM PACK PO SCH ×2 (05:08→12:38)
[2022-06-22] MEDS: ceFAZolin 1000MG 1,000 MG/7.5 ML SYR IV SCH (05:08)
[2022-06-22] MEDS: LEVOTHYROXINE SODIUM 112 MCG TABLET PO SCH (05:54)
[2022-06-22 07:46] LABS: Basophils # (auto) 0.02 K/uL (0-0.2); Basophils % (auto) 0.2 %; Eosinophils # (auto) 0.04 K/uL (0-0.50); Eosinophils % (auto) 0.5 %; Hematocrit (blood only) 33.6 % (34.1-44.9); Hemoglobin 11.4 g/dl (12.0-16.0); Immature Granulocytes # (auto) 0.04 K/uL (0.00-0.02); Immature Granulocytes % (auto) 0.5 %; Lymphocytes # (auto) 1.28 K/uL (1.2-3.4); Lymphocytes % (auto) 15.1 %; Mean Corpuscular Hemoglobin 31.4 pg (25.0-34.0); Mean Corpuscular Hgb Conc 33.9 g/dL (32.0-36.0); Mean Corpuscular Volume 92.6 fL (80.0-100.0); Mean Platelet Volume 10.3 fL (9.4-12.3); Monocytes # (auto) 0.83 K/uL (0.24-0.82); Monocytes % (auto) 9.8 %; Neutrophils # (auto) 6.24 K/uL (1.4-6.5); Neutrophils % (auto) 73.9 %; Platelet Count 264 K/uL (130-400); RDW Coefficient of Variation 12.7 % (11.5-14.5); RDW Standard Deviation 43.3 fL (36.4-46.3); Red Blood Count 3.63 M/uL (3.93-5.22); White Blood Count 8.45 K/ul (4.8-10.8)
[2022-06-22] MEDS: POTASSIUM CHLORIDE CRTAB 20 MEQ TABCR PO SCH (08:58)
[2022-06-22] MEDS: CHOLECALCIFEROL 5,000 UNITS 125 MCG TAB PO SCH (08:58)
[2022-06-22] MEDS: MULTIVITAMIN TAB PO SCH (09:01)
[2022-06-22] MEDS: hydroCHLOROthiazide 25 MG TAB PO SCH (09:01)
[2022-06-22] MEDS: dexAMETHasone 6 MG in SYRINGE 0 ML IV SCH (09:02)
--- NOTE | 2022-06-22 09:30 | Orthopedic Progress Note ---
Date of Service June 22, 2022 Assessment & Plan (1) Neurogenic claudication due to lumbar spinal stenosis: Plan: At this time we will continue physical therapy monitor ELIESER operatively discharge home in next few days. Admission and Anticipated Discharge Date Admission Date: June 21, 2022 Subjective Back pain controlled leg pain markedly improved Physical Exam Physical Exam: Patient is good strength testing. Appears comfortable. Results & Data ([facility]) Vital Signs (Past 12 Hours) Vital Signs Temp Pulse Resp BP Pulse Ox O2 Del Method 06/22/22 06:57 36.7 C 81 16 110/69 95 Room Air 06/22/22 03:15 36.5 C 73 16 102/66 96 Room Air 06/22/22 00:30 36.5 C 79 16 95/64 L 96 Room Air 06/21/22 23:17 36.7 C 85 16 99/63 L 95 Room Air
[2022-06-22 10:26] LABS: BUN Creatinine Ratio 16.3 (10-20); Calcium 9.3 mg/dl (8.5-10.1); Creatinine Clr Calc Pharmacy 57.7 ml/min; Est GFR (African American) 73.7 ml/min; Est GFR (Non-African American) 63.6 ml/min; Potassium 3.8 mmol/L (3.5-5.1)
[2022-06-22] MEDS ORDERED: Nursing to Pharmacy Communication SCH (12:45)
--- NOTE | 2022-06-22 14:41 | Hospitalist Progress Note ---
Date of Service June 22, 2022 Assessment & Plan (1) Neurogenic claudication due to lumbar spinal stenosis: (2) Hypertension: (3) Hypothyroidism, postablative: (4) CKD (chronic kidney disease): Plan Ms. Pérez is a 57-year-old female who presents to the [facility] for an el ective L5-S1 decompression and fusion elective surgery under the care of Dr. Berkowitz after failed nonoperative conservative management as an outpatient. 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 Neurogenic claudication due to lumbar spinal stenosis: POD#1 s/p L5-S1 decompression and fusion surgery status post spondylolisthesis with herniated nucleus and pulposis with Dr. Berkowitz Per ortho for pain control, wound care, anticoagulation and activities. Monitor H&H (Hgb 11.4 today, pre op Hgb 13.6) EBL 50mL ELIESER drain x1; serosanguineous drainage continue incentive spirometry PT/OT when appropriate Hypertension: Takes amlodipine; continue Hypothyroidism, post ablative: Secondary to Graves' disease. Continue levothyroxine Hypokalemia: -> resolved K+ 3.1 -> 3.8 Takes KCl 20 mill equivalent daily; continue Will replete with 40 mill equivalents p.o. once; trend in a.m. CKD: Nephrolithiasis: Atrophy of right kidney; likely congenital Per review of outpatient records Postmenopausal hot flashes: Takes Effexor for hot flashes; continue Disposition: PCP: Dr. Mcgraw CODE STATUS: Full code Please feel free to contact [facility] service 21/01 for any additional questions or assistance via [place] text. Thank you kindly for this consultation. Admission and Anticipated Discharge Date Admission Date: June 21, 2022 Supervising Physician Co-Signing Physician Notes Patient seen and examined Doing well post op Day 1 Monitor hemoglobin Pain is controlled. Activity per Surgeon Hypokalemia resolved. Monitor electrolytes Agree with other plans as detailed by Shanna Villatoro PA-C Subjective Seen and examined in 379 bed 1. Patient feeling well today, endorsing only minimal surgical site discomfort. No pain or paresthesias in bilateral lower extremities. Tolerating lunch without issue. No nausea or vomiting. Ambulating and transferring without issue. Had postop bowel movement this morning. No fever, chills, lightheadedness, headache, chest pain, shortness of breath, abdominal pain, dysuria or diarrhea. Review of Systems Review of Systems: At least ten systems reviewed and negative except as noted in the HPI. Physical Exam Physical Exam: Gen: WD/WN, NAD, sitting in bed eating meal, A&Ox3 HEENT: Normocephalic, atraumatic, conjunctivae moist, sclerae anicteric, mucous membranes moist Lung: Clear to Auscultation bilaterally, no wheezes/rales/rhonchi Heart: Regular rate, regular rhythm, no murmurs, rubs, or gallops Abdomen: Soft, NT, ND +BS x 4 Extremities: +Spinal dressing c/d/i. ELIESER drain visulaized. No edema Skin: Warm, no rash Results & Data Results & Data ([facility]) Vital Signs (Past 12 Hours) Vital Signs Temp Pulse Resp BP Pulse Ox O2 Del Method 06/22/22 12:04 36.6 C 90 16 107/70 94 Room Air 06/22/22 06:57 36.7 C 81 16 110/69 95 Room Air 06/22/22 03:15 36.5 C 73 16 102/66 96 Room Air Laboratory Results Short CBC 06/22/22 Range/Units 07:09 WBC 8.45 (4.8-10.8) K/ul Hgb 11.4 L (12.0-16.0) g/dl Hct 33.6 L (34.1-44.9) % Plt Count 264 (130-400) K/uL BMP 06/22/22 07:09 Sodium 140 Potassium 3.8 D Chloride 104 Carbon Dioxide 29 BUN 16 Creatinine 0.98 Glucose 106 H Calcium 9.3 Diagnostic Findings Lumbar Spine X-Ray 06/21/22 12:55 FL lumbar spine 2-3V HISTORY: 57 years-old Female L5-S1 DECOMPRESSION AND FUSION chronic low back pain COMPARISON: MR lumbar spine 05/31/2022 TECHNIQUE: 2 spot fluoroscopic images of the lumbar spine were obtained utilizing 21.7 seconds fluoroscopy time FINDINGS: Posterior interbody bill and screw fusion with discectomy at L5-S1. Hardware appears intact. No unexpected retained foreign body identified. IMPRESSION: Fluoroscopic assistance as above. ACT 112: Negative or not required by law. The above report was generated using voice recognition software. It may contain grammatical, syntax or spelling errors. Electronically signed by: Mike James M.D. 06/21/2022 3:46 PM
[2022-06-22] MEDS: VENLAFAXINE HCL XR 75 MG CAPXR PO SCH (21:09)
[2022-06-22] MEDS: CALCIUM 600MG + VIT D 400 IU TAB PO SCH (21:09)
[2022-06-22] MEDS: amLODIPine BESYLATE 5 MG TAB PO SCH (21:09)
[2022-06-22] MEDS: DOCUSATE SODIUM/SENNA 50/8.6MG TAB PO SCH (21:10)
[2022-06-22] MEDS: MAGNESIUM OXIDE 400 MG TAB PO SCH (21:11)
[2022-06-23] MEDS: LEVOTHYROXINE SODIUM 112 MCG TABLET PO SCH (05:28)
[2022-06-23] MEDS: traMADol HCL 50 MG TABLET PO PRN ×2 (07:39→15:06)
[2022-06-23] MEDS: dexAMETHasone 6 MG in SYRINGE 0 ML IV SCH (08:23)
[2022-06-23] MEDS: CHOLECALCIFEROL 5,000 UNITS 125 MCG TAB PO SCH (09:40)
[2022-06-23] MEDS: POTASSIUM CHLORIDE CRTAB 20 MEQ TABCR PO SCH (09:40)
[2022-06-23] MEDS: MULTIVITAMIN TAB PO SCH (09:40)
[2022-06-23] MEDS: hydroCHLOROthiazide 25 MG TAB PO SCH (09:40)
[2022-06-23 09:42] LABS: Hematocrit (blood only) 35.6 % (34.1-44.9); Hemoglobin 12.3 g/dl (12.0-16.0); Mean Corpuscular Hemoglobin 31.5 pg (25.0-34.0); Mean Corpuscular Hgb Conc 34.6 g/dL (32.0-36.0); Mean Corpuscular Volume 91.3 fL (80.0-100.0); Mean Platelet Volume 10.2 fL (9.4-12.3); Platelet Count 259 K/uL (130-400); RDW Coefficient of Variation 12.8 % (11.5-14.5); RDW Standard Deviation 42.2 fL (36.4-46.3); White Blood Count 8.47 K/ul (4.8-10.8)
--- NOTE | 2022-06-23 10:42 | Discharge Summary ---
Date of Service June 23, 2022 Admission HPI Per Admitting Provider This is a 57-year-old female who presents for persistent back and leg pain. Failing since course of nonoperative care is here for surgical invention. Principal Diagnosis Lumbar disc condition with spinal stenosis and radiculopathy Discharge Data Allergies Allergy/AdvReac Type Severity Reaction Status Date / Time bee venom protein (honey bee) Allergy Severe HIVES - Verified 06/21/22 11:10 SEVERE Iodinated Contrast Media Allergy Severe NO DYE Verified 06/21/22 11:10 WITHOUT CHECKING - ATROPHIED RIGHT KIDNEY - SEE NOTES Unclassified Drugs Allergy Intermediate SEASONAL Uncoded 06/21/22 11:10 ALLERGIES - SINUS ISSUES, ITCHY EYES, COUGH Consultations 06/21/22 17:32 Consult Hospitalist Routine Procedures Performed Operation Date: 06/21/22 12:55 Actual Procedures p L5-S1 Decompression and Fusion, Spinal Cord Monitoring(Not Applicable) - Jesse Berkowitz DO Ordered Studies 06/21/22 12:55 FL lumbar spine 2-3V Routine Hospital Course (1) Neurogenic claudication due to lumbar spinal stenosis: Patient underwent lumbar decompression fusion tolerated this well was taken to orthopedic for possibly. Postop day 1 she was up and ambulating progressed to postop day #2. Excellent strength testing. ELIESER drain decreasing appropriately. Pain well controlled. Subsequently discharged home. Discharge orders and instructions found in the chart for further review. Total Time Total Time Spent Total Time Spent (In Minutes): 20 minutes Discharge Plan Discharge Items Patient Disposition: Home - Self-Care Reason For Visit: Spondulolisthesis, Lumbosacral Region Discharge Diagnosis: lumbar stenosis Activity: As commented below Non-emergency contact: Primary Care Provider Call non-emergency contact if: you have any medication questions Follow-up/Referrals: Rahul Mcgraw [Primary Care Provider] - Diet: Regular Addtl Attending Provider Instructions: ACTIVITY RECOMMENDATIONS: SELF CARE INSTRUCTIONS AFTER THORACIC/LUMBAR FUSIONS 1. You may walk to your tolerance. It is good exercise for your legs and back. Expect some back and intermittent leg aches and pains. 2. You may perform "counter-top" level activities (make a sandwich, vicente with a project, etc.). 3. No bending or lifting of more than 10 pounds or back twisting of any nature (roll like a log when turning in bed). 4. You may ride in a car for 20-30 minutes at a time. No driving until after your first visit with your doctor. 5. Frequent changes of position and restricting sitting to 30 minutes at a time will help limit the amount of back spasms and stiffness you may experience. 6. You may discontinue the use of ambulatory aids (cane, crutches, etc.) once your strength and confidence allow. 7. You may switchboard installer the shower and let water strike your incision when you arrive home at least once daily. Do not take a tub bath, sit in a hot tub or go into a swimming pool until after your first recheck in the office. SPECIAL CARE INSTRUCTIONS: VERY IMPORTANT TO READ AND REVIEW A. Your surgical incision has been closed with a cosmetic suture under the skin that will dissolve in about 6 weeks. In 14 days, you can use a pair of clean scissors and cut the suture that is left outside of the skin at the ends of your incision. 1. The small skin tapes can be removed 7 days after surgery if they have not fallen off by that point. 2. You may keep the wound open to air as much as possible to promote healing after post-op day number 5 unless told otherwise by your doctor. 3. If you think the wound looks like it is becoming infected (redness or worsening drainage) and/or you are experiencing fever, chill or worsening back pain and muscle spasms, contact the office so that we may evaluate you as soon as possible. B. Complications are uncommon, but please contact us if you have any signs or symptoms of: 1. wound infection (fever higher than 102.5 degrees F, redness, separation of wound, drainage, or increasing pain from the incision) 2. blood clots in legs (pain, swelling, redness and warmth in legs) 3. urinary tract infection (fever higher than 102.5 degrees F, burning upon urination or increased frequency of urination) 4. nerve problems (inability to walk on your toes or heels, numbness, loss of bowel or bladder control) 5. any other symptoms that concern you C. Please call the office at if you have any concerns or questions about your operation or recovery. D. No smoking! Smoking drastically decreases the chance of a solid fusion. E. Do not take any anti-inflammatory medications (Indocin, Advil, Motrin, Aspirin, Naprosyn, etc.) as these may inhibit the chance of a solid fusion. Tylenol is okay to take for pain. MANAGING PAIN AFTER SPINAL SURGERY 1. Narcotic medication is intended for short-term use and will be provided for surgical pain. Surgical pain usually lasts for a period of 4-6 weeks. Narcotic medication includes Percocet, Vicodin, Darvocet, Tylenol #3 or Lortab. 2. Longer-term pain is more appropriately treated with non-narcotic medication such as Tylenol ES. 3. Muscle spasm is not appropriately treated with narcotics. Muscle relaxers such as Soma, Flexeril or Skelaxin can be used along with Tylenol ES. 4. Remember that we all live with some "aches and pains". This is not unusual or uncommon after an injury or as we get older. a. Back pain is expected and may include muscle spasms for 4 to 6 weeks after surgery. The pain should gradually improve. If the pain worsens for no apparent reason, please contact the office. b. Intermittent leg pain may also be experienced and should not be concerned about unless it worsens for no apparent reason. If so, please contact the office. 5. We will provide appropriate medication within the normal guidelines of their prescribed use. We will also be very cautious and aware of potential abuse and extended duration of patients' medication needs. a. Pain medications are for your comfort and to assist with sleep and rest so that the tissue can heal. They are not provided in order to return to normal activity and should not be used through the day. To do so or worsening pain at night can result from ongoing tissue damage and development of tolerance to the prescribed medicine. 6. Please allow 2-3 days to process refills. Prescriptions will not be mailed but must be picked up at the office. FOLLOW UP VISIT: Keep your scheduled follow-up appointment. Any questions, please call the office at . Pending Studies at Discharge: No Stand-Alone Forms: My [facility], Smoking Cessation Medications and SC Order Prescriptions: New tramadol 50 mg tablet 50 mg PO Q6H PRN (Reason: pain, moderate) Qty: 30 0RF oxycodone 5 mg tablet 5 mg PO Q6H PRN (Reason: pain, severe) Qty: 30 0RF Continued diphenhydramine-acetaminophen 25-500 mg tablet 1 tab PO DAILY PRN (Reason: Allergy Symptoms) hydrochlorothiazide 25 mg tablet 25 mg PO QAM Qty: 30 venlafaxine 75 mg capsule,extended release 24hr 75 mg PO QPM multivitamin [Multiple Vitamins] tablet 1 tab PO QAM potassium chloride 20 mEq tablet extended release 20 meq PO QAM alendronate [Fosamax] 70 mg tablet 70 mg PO .weekly Rx Instructions: on Saturday cholecalciferol (vitamin D3) 125 mcg (5,000 unit) capsule 125 mcg PO QAM magnesium oxide 500 mg capsule 500 mg PO QPM calcium carbonate-vitamin D3 [Caltrate with Vitamin D3] 600 mg(1,500mg) -800 unit tablet 1 tab PO QPM amlodipine 5 mg tablet 10 mg PO QPM levothyroxine 112 mcg tablet 112 mcg PO QAM Discharge Orders: Discharge Order (Routine); Ordered 06/23/22 Ordered By: Jesse Berkowitz Admission Data Admit Date/Time: 06/21/22 16:02 Attending Provider: Jesse Berkowitz Admit Provider: Jesse Berkowitz Primary Care Provider: Rahul Mcgraw Other Providers: Gabbi Alanis ; Yuliana Huston Jill
--- NOTE | 2022-06-23 13:37 | Hospitalist Progress Note ---
Date of Service June 23, 2022 Assessment & Plan (1) Neurogenic claudication due to lumbar spinal stenosis: (2) Hypertension: (3) Hypothyroidism, postablative: (4) CKD (chronic kidney disease): Plan Ms. Pérez is a 57-year-old female who presents to the [facility] for an el ective L5-S1 decompression and fusion elective surgery under the care of Dr. Berkowitz after failed nonoperative conservative management as an outpatient. 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 Neurogenic claudication due to lumbar spinal stenosis: POD#2 s/p L5-S1 decompression and fusion surgery status post spondylolisthesis with herniated nucleus and pulposis with Dr. Berkowitz Per ortho for pain control, wound care, anticoagulation and activities. 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 Mcgraw CODE STATUS: Full code Admission and Anticipated Discharge Date Admission Date: June 21, 2022 Subjective Patient seen and examined Reports surgical site pain is well controlled Moving around well Denied any chest pain, cough, shortness of breath Denied nausea, vomiting, abd pain. Having regular BM Denied dysuria, freq, urgency Physical Exam Constitutional: + well hydrated; no acute distress Eyes: PERRL, conjunctivae normal, anicteric sclerae ENMT: external ear and nose normal, oropharynx normal Respiratory: normal respiratory effort, lungs clear to auscultation Cardiovascular: Rate/Rhythm: regular rate and regular rhythm S1 S2 Gastrointestinal (Abdomen): normal bowel sounds, soft, nontender, no hepatosplenomegaly Musculoskeletal: no cyanosis or clubbing, extremities motor strength 5/5 Clean surgical site Neurologic: PERRL, EOMI, accommodation nl, no face palsy, no dysarthria Psychiatric: A+Ox3, euthymic affect Results & Data Results & Data ([facility]) Vital Signs (Past 12 Hours) Vital Signs Temp Pulse Resp BP Pulse Ox O2 Del Method 06/23/22 11:08 36.6 C 78 14 122/78 97 06/23/22 07:09 36.6 C 78 14 122/78 97 Room Air Laboratory Results Abnormal lab results 06/23/22 Range/Units 09:20 RBC 3.90 L (3.93-5.22) M/uL
== END 2022-06-23 17:03 | disposition home or self-care (01) | DRG 455 ==
LOC: ASU 10:47 → 3E 16:02 → 3N 06-22 06:25